=== PATIENT | female | born 1935 | race Caucasian/White ===

== ENCOUNTER 2020-07-06 17:45 | Inpatient (IN) | payer MEDICARE, OTHER ==
[2020-07-06 19:05] VITALS: BMI 15.0
[2020-07-06] MEDS ORDERED: Acetaminophen/Codeine 30-300mg Tablet PO PRN (21:00)
[2020-07-06] MEDS: Atorvastatin Calcium 40 MG TAB PO SCH (21:34)
[2020-07-06] MEDS: Cefdinir 300 MG CAP PO SCH (21:34)
[2020-07-06] MEDS: Docusate 100 MG CAP PO SCH (21:34)
[2020-07-06] MEDS: hydrALAZINE 25 MG TAB PO SCH (21:35)
[2020-07-06] MEDS: levETIRAcetam 250 MG TAB PO SCH (21:47)
[2020-07-06] MEDS ORDERED: HYDROcodone/Acetaminophen 5/325 mg Tablet PO PRN (22:17)
[2020-07-07] MEDS: Saccharomyces boulardii 250 MG CAP PO SCH (08:40)
[2020-07-07] MEDS: Amlodipine 5 MG TAB PO SCH (08:41)
[2020-07-07] MEDS: Lidocaine 5% Patch TD SCH (08:43)
[2020-07-07] MEDS: Losartan Potassium 50 MG TAB PO SCH (08:43)
[2020-07-07] MEDS: hydrALAZINE 25 MG TAB PO SCH ×3 (08:44→20:43)
[2020-07-07] MEDS: Cefdinir 300 MG CAP PO SCH ×2 (08:45→20:42)
[2020-07-07] MEDS: levETIRAcetam 250 MG TAB PO SCH ×2 (08:45→20:43)
[2020-07-07] MEDS: Docusate 100 MG CAP PO SCH ×2 (08:45→20:43)
[2020-07-07] MEDS: Venlafaxine XR 37.5 MG CAP PO SCH (08:46)
[2020-07-07] MEDS: Venlafaxine HCl XR 75 MG CAP PO SCH (08:46)
[2020-07-07] MEDS: Enoxaparin Sodium 30 MG/0.3 ML SYRINGE SC SCH (08:47)
[2020-07-07] MEDS: Polyethylene Glycol 3350 17 GM Packet PO SCH (08:47)
[2020-07-07] MEDS: Ondansetron ODT 4 MG TAB PO PRN (10:45)
[2020-07-07] MEDS: HYDROcodone/Acetaminophen 5/325 mg Tablet PO PRN ×2 (11:32→16:34)
[2020-07-07] MEDS: Lorazepam 0.5 MG TAB PO PRN ×2 (11:32→20:44)
[2020-07-07] MEDS: Ibuprofen 200 MG TAB PO PRN (20:42)
[2020-07-07] MEDS: Atorvastatin Calcium 40 MG TAB PO SCH (20:43)
[2020-07-08 05:31] LABS: #Basophils 0.1 thou/uL (0.0-0.2); #Eosinphils 0.3 thou/uL (0.0-0.7); #Lymphocytes 1.8 thou/uL (1.20-3.40); #Monocytes 0.7 thou/uL (0.11-0.59); #Neutrophils 4.1 thou/uL (1.40-6.50); %Basophils 1.6 % (0.0-1.0); %Lymphocytes 25.9 % (21.0-51.0); %Neutrophils 58.6 % (42.0-75.0); Hemoglobin 10.5 g/dL (12.0-16.0); Mean Corpuscular HGB CONC 31.9 g/dL (32.0-36.0); Mean Corpuscular Hemoglobin 29.1 pg (27.0-31.0); Mean Corpuscular Volume 91.1 fL (78.0-98.0); Mean Platelet Volume 5.9 fL (7.4-10.4); Platelet Count 275 thou/uL (130-400); RBC Distribution Width 14.2 % (11.5-14.5); Red Blood Cell (RBC) Count 3.63 mill/uL (4.20-5.40)
[2020-07-08 05:40] LABS: ALT (SGPT) 23 U/L (8-55); AST (SGOT) 23 U/L (5-34); Alkaline Phosphatase 80 U/L (40-110); Anion Gap 12 mmol/L (10-20); BUN (Urea Nitrogen) 22 mg/dL (9.8-20.1); Bilirubin, Total 0.3 mg/dL (0.2-1.2); Calc. Creatinine Clearance 33 mL/min (70-130); Calcium 9.8 mg/dL (7.8-10.44); Carbon Dioxide 26 mmol/L (23-31); Chloride 96 mmol/L (98-107); Globulin 2.6 g/dL (2.4-3.5); Glucose 84 mg/dL (83-110); Potassium 4.7 mmol/L (3.5-5.1); Protein, Total 5.6 g/dL (6.0-8.3); Sodium 129 mmol/L (136-145)
[2020-07-08] MEDS: Enoxaparin Sodium 30 MG/0.3 ML SYRINGE SC SCH (08:43)
[2020-07-08] MEDS: Lidocaine 5% Patch TD SCH (08:44)
[2020-07-08] MEDS: Polyethylene Glycol 3350 17 GM Packet PO SCH (08:47)
[2020-07-08] MEDS: Cefdinir 300 MG CAP PO SCH ×2 (08:48→21:03)
[2020-07-08] MEDS: levETIRAcetam 250 MG TAB PO SCH ×2 (08:49→21:04)
[2020-07-08] MEDS: Losartan Potassium 50 MG TAB PO SCH (08:50)
[2020-07-08] MEDS: Venlafaxine XR 37.5 MG CAP PO SCH (08:51)
[2020-07-08] MEDS: Saccharomyces boulardii 250 MG CAP PO SCH (08:51)
[2020-07-08] MEDS: Venlafaxine HCl XR 75 MG CAP PO SCH (08:52)
[2020-07-08] MEDS: Docusate 100 MG CAP PO SCH ×2 (08:52→21:04)
[2020-07-08] MEDS: Amlodipine 5 MG TAB PO SCH (08:53)
[2020-07-08] MEDS: Lorazepam 0.5 MG TAB PO PRN ×2 (08:54→17:47)
[2020-07-08] MEDS: hydrALAZINE 25 MG TAB PO SCH ×3 (08:56→21:04)
[2020-07-08] MEDS: HYDROcodone/Acetaminophen 5/325 mg Tablet PO PRN ×2 (09:05→21:02)
[2020-07-08] MEDS: ESTRACE VAG CREAM VAG SCH (16:22)
[2020-07-08] MEDS: Atorvastatin Calcium 40 MG TAB PO SCH (21:04)
[2020-07-09] MEDS: HYDROcodone/Acetaminophen 5/325 mg Tablet PO PRN ×2 (05:20→17:52)
[2020-07-09] MEDS: Ibuprofen 200 MG TAB PO PRN (08:28)
[2020-07-09] MEDS: Lidocaine 5% Patch TD SCH (08:30)
[2020-07-09] MEDS: Enoxaparin Sodium 30 MG/0.3 ML SYRINGE SC SCH (08:31)
[2020-07-09] MEDS: Polyethylene Glycol 3350 17 GM Packet PO SCH (08:32)
[2020-07-09] MEDS: Venlafaxine HCl XR 75 MG CAP PO SCH (08:32)
[2020-07-09] MEDS: Cefdinir 300 MG CAP PO SCH ×2 (08:35→21:16)
[2020-07-09] MEDS: Losartan Potassium 50 MG TAB PO SCH (08:35)
[2020-07-09] MEDS: Docusate 100 MG CAP PO SCH ×2 (08:35→21:16)
[2020-07-09] MEDS: Saccharomyces boulardii 250 MG CAP PO SCH (08:37)
[2020-07-09] MEDS: hydrALAZINE 25 MG TAB PO SCH ×3 (08:38→21:16)
[2020-07-09] MEDS: Venlafaxine XR 37.5 MG CAP PO SCH (08:38)
[2020-07-09] MEDS: Amlodipine 5 MG TAB PO SCH (08:38)
[2020-07-09] MEDS: levETIRAcetam 250 MG TAB PO SCH ×2 (08:39→21:17)
[2020-07-09] MEDS: Lorazepam 0.5 MG TAB PO PRN ×2 (08:52→21:16)
[2020-07-09] MEDS ORDERED: Fluticasone Propionate Nasal Spray 16 gm Bottle NASAL SCH (19:30)
[2020-07-09] MEDS: Atorvastatin Calcium 40 MG TAB PO SCH (21:16)
[2020-07-10] MEDS: Polyethylene Glycol 3350 17 GM Packet PO SCH (08:34)
[2020-07-10] MEDS: Enoxaparin Sodium 30 MG/0.3 ML SYRINGE SC SCH (08:34)
[2020-07-10] MEDS: Ondansetron ODT 4 MG TAB PO PRN (08:34)
[2020-07-10] MEDS: Saccharomyces boulardii 250 MG CAP PO SCH (08:36)
[2020-07-10] MEDS: Cefdinir 300 MG CAP PO SCH ×2 (08:36→20:32)
[2020-07-10] MEDS: Amlodipine 5 MG TAB PO SCH (08:37)
[2020-07-10] MEDS: Losartan Potassium 50 MG TAB PO SCH (08:37)
[2020-07-10] MEDS: hydrALAZINE 25 MG TAB PO SCH ×3 (08:39→20:34)
[2020-07-10] MEDS: Docusate 100 MG CAP PO SCH ×2 (08:40→20:32)
[2020-07-10] MEDS: Venlafaxine HCl XR 75 MG CAP PO SCH (08:41)
[2020-07-10] MEDS: Venlafaxine XR 37.5 MG CAP PO SCH (08:41)
[2020-07-10] MEDS: Fluticasone Propionate Nasal Spray 16 gm Bottle NASAL SCH (08:45)
[2020-07-10] MEDS: levETIRAcetam 250 MG TAB PO SCH ×2 (08:46→20:32)
[2020-07-10] MEDS: Lidocaine 5% Patch TD SCH (08:46)
[2020-07-10] MEDS: Lorazepam 0.5 MG TAB PO PRN (08:54)
[2020-07-10] MEDS ORDERED: Bisacodyl 10 MG SUPP PR PRN (12:53)
[2020-07-10] MEDS: ESTRACE VAG CREAM VAG SCH (15:16)
[2020-07-10] MEDS ORDERED: Fleet Enema 133 ML BOT PR PRN (20:03)
[2020-07-10] MEDS: Atorvastatin Calcium 40 MG TAB PO SCH (20:32)
[2020-07-10] MEDS: HYDROcodone/Acetaminophen 5/325 mg Tablet PO PRN (21:03)
[2020-07-11] MEDS: HYDROcodone/Acetaminophen 5/325 mg Tablet PO PRN ×2 (06:57→12:30)
[2020-07-11] MEDS: Venlafaxine HCl XR 75 MG CAP PO SCH (09:22)
[2020-07-11] MEDS: Enoxaparin Sodium 30 MG/0.3 ML SYRINGE SC SCH (09:22)
[2020-07-11] MEDS: hydrALAZINE 25 MG TAB PO SCH ×3 (09:24→23:52)
[2020-07-11] MEDS: levETIRAcetam 250 MG TAB PO SCH ×2 (09:24→23:52)
[2020-07-11] MEDS: Saccharomyces boulardii 250 MG CAP PO SCH (09:25)
[2020-07-11] MEDS: Docusate 100 MG CAP PO SCH ×2 (09:25→23:52)
[2020-07-11] MEDS: Venlafaxine XR 37.5 MG CAP PO SCH (09:25)
[2020-07-11] MEDS: Amlodipine 5 MG TAB PO SCH (09:26)
[2020-07-11] MEDS: Fluticasone Propionate Nasal Spray 16 gm Bottle NASAL SCH (09:27)
[2020-07-11] MEDS: Lidocaine 5% Patch TD SCH (09:27)
[2020-07-11] MEDS: Losartan Potassium 50 MG TAB PO SCH (09:31)
[2020-07-11] MEDS: Polyethylene Glycol 3350 17 GM Packet PO SCH (09:34)
[2020-07-11] MEDS: Ibuprofen 200 MG TAB PO PRN (09:44)
[2020-07-11] MEDS: Atorvastatin Calcium 40 MG TAB PO SCH (23:52)
[2020-07-12] MEDS: HYDROcodone/Acetaminophen 5/325 mg Tablet PO PRN ×3 (00:12→17:28)
[2020-07-12] MEDS: Atorvastatin Calcium 40 MG TAB PO SCH ×2 (00:13→20:35)
[2020-07-12] MEDS: levETIRAcetam 250 MG TAB PO SCH ×3 (00:14→20:35)
[2020-07-12] MEDS: Enoxaparin Sodium 30 MG/0.3 ML SYRINGE SC SCH (09:27)
[2020-07-12] MEDS: Venlafaxine XR 37.5 MG CAP PO SCH (09:28)
[2020-07-12] MEDS: Venlafaxine HCl XR 75 MG CAP PO SCH (09:28)
[2020-07-12] MEDS: Saccharomyces boulardii 250 MG CAP PO SCH (09:29)
[2020-07-12] MEDS: Amlodipine 5 MG TAB PO SCH (09:36)
[2020-07-12] MEDS: hydrALAZINE 25 MG TAB PO SCH ×3 (09:37→21:00)
[2020-07-12] MEDS: Losartan Potassium 50 MG TAB PO SCH (09:37)
[2020-07-12] MEDS: Docusate 100 MG CAP PO SCH ×2 (09:40→21:00)
[2020-07-12] MEDS: Polyethylene Glycol 3350 17 GM Packet PO SCH (09:40)
[2020-07-12] MEDS: Lidocaine 5% Patch TD SCH (09:41)
[2020-07-12] MEDS: Fluticasone Propionate Nasal Spray 16 gm Bottle NASAL SCH (09:45)
[2020-07-12] MEDS ORDERED: Sodium Chloride 0.9% 500 ML IV SCH (11:45)
[2020-07-12 13:49] LABS: Bilirubin Small (Negative); Blood, Urine Negative (Negative); Clarity Cloudy (Clear); Glucose, Urine (Dipstick) Negative (Negative); Ketone, Urine Negative (Negative); Leukocyte Small (Negative); Nitrite Negative (Negative); Protein, Urine (Dipstick) 30 mg/dL (Neg-Trace); Specific Gravity, Urine 1.025 (1.005-1.030); Urobilinogen 0.2 mg/dL (Less than 2)
[2020-07-12 14:14] LABS: RBC/HPF None Seen HPF (0-3); Renal Epithelial 0-3 HPF (None Seen); Squamous Epithelial 0-3 HPF (0-3); WBC/HPF Greater Than 50 HPF (0-3)
[2020-07-12 14:15] LABS: Bacteria/HPF 3+ HPF (None Seen); Mucous/LPF Few LPF (<2+); Yeast-Budding 3+ HPF (None Seen); Yeast-Hyphae 1+ HPF (None Seen)
[2020-07-12] MEDS: ESTRACE VAG CREAM VAG SCH (17:20)
[2020-07-13] MEDS: HYDROcodone/Acetaminophen 5/325 mg Tablet PO PRN ×2 (04:07→15:26)
[2020-07-13] MEDS: Losartan Potassium 50 MG TAB PO SCH (08:50)
[2020-07-13] MEDS: Lidocaine 5% Patch TD SCH (08:50)
[2020-07-13] MEDS: levETIRAcetam 250 MG TAB PO SCH ×2 (08:51→21:45)
[2020-07-13] MEDS: Saccharomyces boulardii 250 MG CAP PO SCH (08:51)
[2020-07-13] MEDS: Venlafaxine XR 37.5 MG CAP PO SCH (08:51)
[2020-07-13] MEDS: Cefdinir 300 MG CAP PO SCH ×2 (08:53→21:45)
[2020-07-13] MEDS: Amlodipine 5 MG TAB PO SCH (08:53)
[2020-07-13] MEDS: Venlafaxine HCl XR 75 MG CAP PO SCH (08:53)
[2020-07-13] MEDS: Enoxaparin Sodium 30 MG/0.3 ML SYRINGE SC SCH (08:56)
[2020-07-13] MEDS: Docusate 100 MG CAP PO SCH ×2 (08:56→21:45)
[2020-07-13] MEDS: Polyethylene Glycol 3350 17 GM Packet PO SCH (08:57)
[2020-07-13] MEDS: Fluticasone Propionate Nasal Spray 16 gm Bottle NASAL SCH (08:57)
[2020-07-13] MEDS ORDERED: ESTRACE VAGINAL CREAM VAG SCH (21:00)
[2020-07-13] MEDS: Atorvastatin Calcium 40 MG TAB PO SCH (21:45)
[2020-07-14] MEDS ORDERED: Fluticasone Propionate Nasal Spray 16 gm Bottle NASAL SCH (09:00)
[2020-07-14] MEDS: Cefdinir 300 MG CAP PO SCH (10:40)
[2020-07-14] MEDS: Amlodipine 5 MG TAB PO SCH (10:40)
[2020-07-14] MEDS: levETIRAcetam 250 MG TAB PO SCH (10:40)
[2020-07-14] MEDS: Enoxaparin Sodium 30 MG/0.3 ML SYRINGE SC SCH (10:40)
[2020-07-14] MEDS: Venlafaxine XR 37.5 MG CAP PO SCH (10:41)
[2020-07-14] MEDS: Saccharomyces boulardii 250 MG CAP PO SCH (10:41)
[2020-07-14] MEDS: Docusate 100 MG CAP PO SCH (10:41)
[2020-07-14] MEDS: Losartan Potassium 50 MG TAB PO SCH (10:41)
[2020-07-14] MEDS: Venlafaxine HCl XR 75 MG CAP PO SCH (10:42)
[2020-07-14] MEDS: Polyethylene Glycol 3350 17 GM Packet PO SCH (10:44)
[2020-07-14] MEDS: Lidocaine 5% Patch TD SCH (10:55)
[2020-07-14] MEDS: HYDROcodone/Acetaminophen 5/325 mg Tablet PO PRN ×2 (11:00→16:35)
[2020-07-14 16:50] VITALS: BP 133/64; TEMP 98.3
--- NOTE | 2020-07-15 08:06 | DIS ---
DATE OF ADMISSION: 07/06/2020 DATE OF DISCHARGE: 07/14/2020 ADMISSION DIAGNOSES: 1. Left lower lobe pneumonia. 2. Physical deconditioning with failure to thrive. 3. Urinary retention. 4. Moderate protein calorie malnutrition. SECONDARY DIAGNOSES: 1. Hypertension. 2. Dyslipidemia. 3. Chronic back pain. 4. Seizure disorder. 5. Anxiety and depression. 6. Oxygen-dependent COPD. PROCEDURES: None. HOSPITAL COURSE: This is an 85-year-old female who transitioned to our care home facility to participate with physical therapy and occupational therapy, and complete a course of oral antibiotics, status post acute admission at [facility] in [place], where she presented with weakness and shortness of breath. Workup at that facility showed the patient to have pneumonia with acute respiratory failure on top of her chronic respiratory failure. She was treated with broad-spectrum antibiotics, and eventually tapered to oral Omnicef per her culture, which isolated Pseudomonas. The patient did improve in regard to this, however, secondary to her deconditioned state, transitioned to our care home facility as stated. 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 Unfortunately at our facility, her condition has continued to trend in a negative direction. The patient has been declining physical therapy and occupational therapy, and does not display a desire to improve her functional status. Her oral intake also remains quite poor. 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 The patient has subsequently been evaluated by [facility] who has noted that she does qualify for their services, and at this time she will discharge to her home under their care. DISPOSITION: The patient will discharge to her home on hospice [facility]. DISCHARGE MEDICATIONS: 1. Effexor XR 75 mg daily and 37.5 mg daily. 2. Keppra 500 mg b.i.d. 3. Ranexa 500 mg b.i.d. 4. Seroquel 25 mg q.h.s. 5. Tylenol with Codeine No. 4 t.i.d. p.r.n. 6. Myrbetriq 50 mg daily. 7. Atorvastatin 40 mg q.h.s. 8. Losartan 100 mg daily. 9. DuoNeb 3 mL q.i.d. p.r.n. 10. MiraLAX 17 g daily as needed. 11. Lidocaine patch. 12. Amlodipine 5 mg daily. 13. Colace 100 mg b.i.d. Total time spent in preparation of discharge of this patient greater than 30 minutes. Job ID: [id number] [id number]
== END 2020-07-14 17:10 | disposition hospice, home (50) | DRG 947 ==
LOC: BURMED 17:45
PROVIDERS: ADMIT Family Medicine; ATTEND Family Medicine
DX: R53.81 Other malaise (principal); J18.9 Pneumonia, unspecified organism; N39.0 Urinary tract infection, site not specified; Z68.1 Body mass index [BMI] 19.9 or less, adult; E44.0 Moderate protein-calorie malnutrition; J44.0 Chronic obstructive pulmonary disease with (acute) lower respiratory infection; I25.10 Atherosclerotic heart disease of native coronary artery without angina pectoris; M48.00 Spinal stenosis, site unspecified; R62.7 Adult failure to thrive; R33.9 Retention of urine, unspecified; G40.909 Epilepsy, unspecified, not intractable, without status epilepticus; F41.9 Anxiety disorder, unspecified; F32.9 Major depressive disorder, single episode, unspecified; G89.29 Other chronic pain; E78.5 Hyperlipidemia, unspecified; I10 Essential (primary) hypertension; Z88.1 Allergy status to other antibiotic agents; Z88.2 Allergy status to sulfonamides; Z88.8 Allergy status to other drugs, medicaments and biological substances
CPT/HCPCS: 36415; 80053; 81003; 81015; 85025; 87086; J1650; Q0162